=== PATIENT | male | born 1950 | race Caucasian/White ===

== ENCOUNTER 2020-01-03 12:38 | Emergency (ER) | payer OTHER ==
[~2020-01-03] VITALS: Ht 177.8 cm; Wt 77.1 kg
--- NOTE | 2020-01-03 12:42 | NUR ---
Patient BIBA ALS, transferred to bed 6. RN evaluating patient at bedside.
[2020-01-03 12:43] VITALS: BP 167/75
--- NOTE | 2020-01-03 12:51 | NUR ---
69 Y/O MALE BIBA ALS C/O DIZZINESS X 4 DAYS. PT STATES HE WAS AT CLINIC AND INCREASING DIZZINESS W/ HYPOTENSION TODAY. DENIES PAIN AT THIS TIME .PT GIVEN 200CC BOLUS IN ROUTE, PT BP 167/75 AT THIS TIME. PT PRESENTS WITH 20G TO LT WRIST. RR EVEN AND UNLABORED. PT PLACED ON MONITOR. WILL CONTINUE TO MONITOR MEDHX: DM, HTN ALLERGIES: NKA
[2020-01-03] MEDS ORDERED: NACL 0.9% 1,000 ML IV SCH (12:56)
[2020-01-03] MEDS ORDERED: cefTRIAXone 1,000 MG in DEXT 5% MINI-BAG PLUS 50 ML IV ONE (13:00)
[2020-01-03] MEDS ORDERED: cefTRIAXone 1,000 MG VIAL ONE (13:02)
--- NOTE | 2020-01-03 13:03 | NUR ---
EKG completed at bedside by EMT.
[2020-01-03 13:39] LABS: BASOPHILS # (AUTO) 0.1 K/uL (0.00-0.22); BASOPHILS % (AUTO) 0.8 % (0.0-2.0); EOSINOPHILS # (AUTO) 0.4 K/uL (0-0.4); EOSINOPHILS % (AUTO) 4.2 % (0.0-4.0); HEMATOCRIT 39.2 % (36-52); HEMOGLOBIN 13.8 g/dL (12.0-18.0); LYMPHOCYTES # (AUTO) 1.9 K/uL (2.0-11.5); LYMPHOCYTES % (AUTO) 19.7 % (20.5-51.1); MEAN CORPUSCULAR HEMOGLOBIN 29 pg (27-31); MEAN CORPUSCULAR HGB CONC 35 g/dL (33-37); MEAN CORPUSCULAR VOLUME 81.9 fL (80-94); MONOCYTES # (AUTO) 0.6 K/uL (0.8-1.0); MONOCYTES % (AUTO) 6.4 % (1.7-9.3); NEUTROPHILS # (AUTO) 6.5 K/uL (1.8-7.7); NEUTROPHILS % (AUTO) 68.9 % (42.2-75.2); PLATELET COUNT (AUTO) 247 K/uL (140-450); RED BLOOD CELL COUNT(AUTO) 4.79 MIL/uL (4.20-6.10); RED CELL DISTRIBUTION WIDTH 13.6 % (11.6-13.7); WHITE BLOOD COUNT (AUTO) 9.4 K/uL (4.8-10.8)
[2020-01-03 14:16] LABS: ALBUMIN 2.9 g/dL (3.4-5.0); ANION GAP 10.9 (8-16); ASPARTATE AMINOTRANSFERASE 34 U/L (15-37); CARBON DIOXIDE 27.6 mmol/L (21-32); CHLORIDE 98 mmol/L (98-107); CREATININE 1.1 mg/dL (0.6-1.3); GLUCOSE 192 mg/dL (74-106); POTASSIUM 3.5 mmol/L (3.5-5.1); SODIUM SERUM 133 mmol/L (136-145); TOTAL BILIRUBIN 0.3 mg/dL (0.0-1.0); UREA NITROGEN, BLOOD 14 mg/dL (7-18)
[2020-01-03 14:20] LABS: APPEARANCE,URINE SL CLOUDY (CLEAR); BILIRUBIN,URINE NEGATIVE (NEGATIVE); BLOOD, URINE TRACE-L (NEGATIVE); COLOR,URINE YELLOW (YELLOW); LEUKOCYTE ESTERASE ,URINE 2+ (NEGATIVE); NITRITE, URINE NEGATIVE (NEGATIVE); UGLUCOSE TRACE (NEGATIVE)
[2020-01-03 14:27] LABS: RBC,URINE 0-5 /HPF (0-5)
[2020-01-03 14:28] LABS: WBC,URINE TOO MANY TO COUNT /HPF (0-5)
--- NOTE | 2020-01-03 14:43 | NUR ---
pt sitting upright awake and alert. rr even and unlabored. remains on monitor. will continue to monitor
[2020-01-03] MEDS ORDERED: LOSA25TA43 PO (14:48)
[2020-01-03] MEDS ORDERED: LEVO0.114 PO (14:48)
[2020-01-03] MEDS ORDERED: SITA100T8 PO (14:48)
[2020-01-03] MEDS ORDERED: HYDR-3293 PO (14:48)
[2020-01-03] MEDS ORDERED: PHE25S RC (14:48)
--- NOTE | 2020-01-03 16:12 | NUR ---
LAYING IN BED WITH EYES CLOSED, NO C/O OF PAIN AT THIS TIME. VSS. WILL CONTINUE TO MONITOR
--- NOTE | 2020-01-03 17:30 | NUR ---
PT AMBULATED TO RESTROOM WITH STEADY GAIT
--- NOTE | 2020-01-03 18:31 | NUR ---
REPORT CALLED TO [facility]. SPOKE TO JT THURMAN.
--- NOTE | 2020-01-03 18:32 | NUR ---
PT SEMI-FOWLERS IN BED, WITH EYES OPEN TALKING WITH FAMILY. RR EVEN AND UNLABORED. 1 SIDERAIL UP, BED LOW AND LOCKED, WILL CONTINUE TO MONITOR.
--- NOTE | 2020-01-03 19:22 | NUR ---
REPORT GIVEN TO JT QUEEN. TRANSFER OF CARE AT THIS TIME
--- NOTE | 2020-01-03 19:30 | NUR ---
Patient to be transferred to [facility]. Receiving facility has accepting physician and available space. ER physician has signed transfer form. Patient or responsible green party has agreed to transfer and signed form. Patient belongings inventoried and will be sent with patient. Copy of nursing notes, lab reports, EKG, Physicians Orders and X-rays to be sent with patient. Report called to [facility] at receiving facility.
[2020-01-03 19:57] VITALS: BP 170/70
== END 2020-01-03 19:30 | disposition home or self-care (01) ==
LOC: MED 12:38
DX: N39.0 Urinary tract infection, site not specified (principal); I10 Essential (primary) hypertension; E11.9 Type 2 diabetes mellitus without complications; Z98.890 Other specified postprocedural states; Z79.899 Other long term (current) drug therapy
CPT/HCPCS: 36415; 71045; 80053; 81001; 83605; 83880; 84484; 85025; 87040; 87086; 87186; 93005; 96365; 99285; J0696; J7030; Q0092